=== PATIENT | male | born 1970 | race Caucasian/White ===

== ENCOUNTER → 2017-02-02 | Outpatient (CLI) | payer OTHER, BC | LOC: COL.RAD 13:00 | DX: M79.631 Pain in right forearm (principal); S53.401A Unspecified sprain of right elbow, initial encounter; M94.9 Disorder of cartilage, unspecified; R60.0 Localized edema; M25.421 Effusion, right elbow ==

== ENCOUNTER → 2017-03-21 | Outpatient (CLI) | payer OTHER, BC | LOC: COL.RAD 12:08 | DX: M47.22 Other spondylosis with radiculopathy, cervical region (principal); M47.26 Other spondylosis with radiculopathy, lumbar region; G56.91 Unspecified mononeuropathy of right upper limb; G57.91 Unspecified mononeuropathy of right lower limb ==